=== PATIENT | male | born 1970 | race Caucasian/White ===

== ENCOUNTER 2018-05-04 07:39 | Emergency (ER) | payer OTHER ==
[~2018-05-04] VITALS: Ht 172.7 cm; Wt 95.3 kg
[2018-05-04 07:44] VITALS: BP_SYST 167
--- NOTE | 2018-05-04 07:53 | NUR ---
Pt c/o Right side pain exacerbated with deep respirations, onset 1 hr [employer]. Denies c/o C/P or SOB. Denies N/V/D, no c/o dysuria.
--- NOTE | 2018-05-04 07:53 | NUR ---
Placed in room 3. Placed on child monitor, blood pressure machine and pulse oximeter. To gown for exam. Side rails up. Report given to Emeterio UGALDE.
--- NOTE | 2018-05-04 08:01 | NUR ---
Dr. De at bedside to assess pt.
--- NOTE | 2018-05-04 08:10 | NUR ---
# 20 gauge angiocath placed to RAC. Use of asceptic technique. Opsite placed over site. Blood return noted. Blood for lab drawn from site. Flushed with 10 cc of normal saline. No evidence of infiltration noted. Patient tolerated well.
--- NOTE | 2018-05-04 08:20 | NUR ---
X-ray at bedside.
[2018-05-04] MEDS: NACL 0.9% 1,000 ML IV ONE (08:24)
[2018-05-04] MEDS: KETOROLAC TROMETHAMINE 30 MG VIAL IVP ONE (08:25)
[2018-05-04 08:29] LABS: BASOPHILS # (AUTO) 0.1 K/uL (0.0-0.2); BASOPHILS % (AUTO) 0.7 % (0.0-2.0); EOSINOPHILS # (AUTO) 0.2 K/uL (0.0-0.4); EOSINOPHILS % (AUTO) 1.9 % (0.0-4.0); HEMATOCRIT 43.1 % (36-54); HEMOGLOBIN 14.9 g/dL (14.0-18.0); LYMPHOCYTES # (AUTO) 2.3 K/uL (1.0-5.5); LYMPHOCYTES % (AUTO) 23.6 % (20.5-51.5); MEAN CORPUSCULAR HEMOGLOBIN 29 pg (27-31); MEAN CORPUSCULAR HGB CONC 35 % (32-36); MEAN CORPUSCULAR VOLUME 84 fL (79.0-98.0); MONOCYTES # (AUTO) 0.8 K/uL (0.0-1.0); NEUTROPHILS # (AUTO) 6.3 K/uL (1.8-7.7); NEUTROPHILS % (AUTO) 65.8 % (40.0-70.0); PLATELET COUNT (AUTO) 106 K/uL (130-430); RED BLOOD CELL COUNT(AUTO) 5.11 MIL/uL (4.2-6.2); RED CELL DISTRIBUTION WIDTH 14.7 % (9.0-15.0); WHITE BLOOD COUNT (AUTO) 9.6 K/uL (4.8-10.8)
--- NOTE | 2018-05-04 08:30 | NUR ---
Pt report given to [facility].
--- NOTE | 2018-05-04 08:35 | NUR ---
Patient report received from [facility]. Introduced self to patient, at bedside. Patient medicated with toradol and IVF Normal saline. Patient states pain is present, but it is getting better. Patient resting comfortably. Encouraged to let me know if needs arise.
[2018-05-04 08:44] LABS: BILIRUBIN,URINE NEGATIVE (NEGATIVE); BLOOD, URINE NEGATIVE (NEGATIVE); CLARITY/URINE CLEAR (CLEAR); COLOR,URINE YELLOW (YELLOW); GLUCOSE,URINE NEGATIVE (NEGATIVE); KETONES,URINE NEGATIVE (NEGATIVE); LEUKOCYTE ESTERASE ,URINE NEGATIVE (NEGATIVE); NITRITE, URINE NEGATIVE (NEGATIVE); PH,URINE 5.5 (5.0-8.0); PROTEIN URINE NEGATIVE (NEGATIVE); UROBILINOGEN,URINE 0.2 (0.2-1.0)
[2018-05-04 08:47] LABS: ALBUMIN 3.6 g/dL (3.4-4.8); CALCIUM 9.4 mg/dL (8.4-11.0); CREATININE 1.3 mg/dL (0.55-1.30); POTASSIUM 4.3 mmol/L (3.5-5.1); TOTAL BILIRUBIN 0.4 mg/dL (0.0-1.0)
--- NOTE | 2018-05-04 09:46 | NUR ---
Patient resting comfortably, patients at bedside. Patient states pain is still present upon inhalation, but is tolerable at this time. Patient has completed the 1L normal saline bolus.
--- NOTE | 2018-05-04 10:33 | NUR ---
MD made aware of lab results being back, and patient to be seen by MD.
--- NOTE | 2018-05-04 10:51 | NUR ---
Patient taken to CT scan via [place]. Will follow up upon return.
--- NOTE | 2018-05-04 11:36 | NUR ---
Pt resting at this time ,A&Ox4, respirations even and unlabored, family at bedside.
[2018-05-04 13:13] VITALS: BP_SYST 163
--- NOTE | 2018-05-04 13:13 | NUR ---
Patient given written and verbal discharge instructions and verbalizes understanding. ER MD discussed with patient the results and treatment provided. Patient in stable condition. ID arm band removed. Rx of Ibuprofen given. Patient educated on pain management and to follow up with PMD. Pain Scale 0/10. IV DC with cath intact. Opportunity for questions provided and answered. Medication side effect fact sheet provided.
== END 2018-05-04 13:13 | disposition home or self-care (01) ==
LOC: SED 07:39
DX: S33.5XXA Sprain of ligaments of lumbar spine, initial encounter (principal); I10 Essential (primary) hypertension; X58.XXXA Exposure to other specified factors, initial encounter; Y93.89 Activity, other specified; Y92.89 Other specified places as the place of occurrence of the external cause; Y99.8 Other external cause status
CPT/HCPCS: 36415; 71045; 74176; 80053; 83690; 81003; 83880; 85025; 85379; 85610; 96374; 99284; J1885; J7030